=== PATIENT | male | born 1955 | race Caucasian/White ===

== ENCOUNTER 2020-11-18 06:05 | Emergency (ER) | payer MEDICARE ==
[2020-11-18 07:09] LABS: #Eosinphils 0.1 thou/uL (0.0-0.7); #Lymphocytes 0.7 thou/uL (1.20-3.40); #Monocytes 0.6 thou/uL (0.11-0.59); #Neutrophils 7.4 thou/uL (1.40-6.50); %Basophils 0.1 % (0.0-1.0); %Eosinophils 0.9 % (0.0-10.0); %Lymphocytes 7.9 % (21.0-51.0); %Monocytes 7.2 % (0.0-10.0); %Neutrophils 83.9 % (42.0-75.0); Mean Corpuscular HGB CONC 32.3 g/dL (32.0-36.0); Mean Corpuscular Hemoglobin 30.6 pg (27.0-31.0); Mean Corpuscular Volume 94.7 fL (78.0-98.0); Mean Platelet Volume 7.8 fL (7.4-10.4); Platelet Count 329 thou/uL (130-400); RBC Distribution Width 11.7 % (11.5-14.5); Red Blood Cell (RBC) Count 4.59 mill/uL (4.70-6.10); White Blood Cell (WBC) Count 8.8 thou/uL (4.8-10.8)
[2020-11-18 07:30] LABS: ALT (SGPT) 17 U/L (8-55); AST (SGOT) 21 U/L (5-34); Albumin 3.5 g/dL (3.4-4.8); Alkaline Phosphatase 79 U/L (40-110); Anion Gap 18 mmol/L (10-20); BUN (Urea Nitrogen) 18 mg/dL (8.4-25.7); Bilirubin, Total 0.7 mg/dL (0.2-1.2); Calc. Creatinine Clearance 0 mL/min (70-130); Calcium 8.8 mg/dL (7.8-10.44); Carbon Dioxide 22 mmol/L (23-31); Chloride 100 mmol/L (98-107); Globulin 3.7 g/dL (2.4-3.5); Glucose 121 mg/dL (80-115); Potassium 3.9 mmol/L (3.5-5.1); Protein, Total 7.2 g/dL (5.8-8.1); Sodium 136 mmol/L (136-145)
--- NOTE | 2020-11-18 07:51 | RAD ---
Chest one view HISTORY: Dyspnea. COMPARISON: 11/12/2020. FINDINGS: Cardiac silhouette and pulmonary vasculature are unremarkable. Mediastinum is midline. Subt le ill-defined patchy areas of groundglass parenchymal opacity project over the lateral aspect of the left lung, possibly the left lower lobe and the right lower lobe. No lobar consolidation or evidence of pneumothorax. IMPRESSION : Slight interval progression in density of still subtle bilateral infiltrates. Correlate for COVID pne umonitis.
[2020-11-18] MEDS ORDERED: Dexamethasone 10 MG/ML VIAL ONE (08:00)
== END 2020-11-18 09:12 | disposition home or self-care (01) ==
LOC: ERS 06:05
DX: U07.1 COVID-19 (principal); J12.82 Pneumonia due to coronavirus disease 2019; E78.00 Pure hypercholesterolemia, unspecified; E11.9 Type 2 diabetes mellitus without complications; Z79.899 Other long term (current) drug therapy
CPT/HCPCS: 36415; 71045; 80053; 83880; 84484; 85025; 93005; 96374; J1100

== ENCOUNTER 2024-01-27 07:07 | Day surgery (SDC) | payer OTHER ==
[2024-01-18 15:43] VITALS: BMI 29.4
[2024-01-27] MEDS ORDERED: LevoFLOXacin D5W 500 mg (100 mL) BAG ONE (07:59)
[2024-01-27] MEDS ORDERED: Midazolam HCl 2 mg/2 ml Vial ONE (08:00)
[2024-01-27] MEDS ORDERED: Iopamidol 0 ML ONE (09:42)
[2024-01-27] MEDS ORDERED: PROPOFOL 20 ML ONE (09:59)
[2024-01-27] MEDS ORDERED: fentaNYL PF 100 MCG/2 ML SYRINGE ONE (09:59)
[2024-01-27] MEDS ORDERED: Lidocaine 2% PF 5 ML VIAL ONE (10:00)
[2024-01-27] MEDS ORDERED: Dexmedetomidine 200 MCG/2 ML VIAL ONE (10:24)
[2024-01-27] MEDS ORDERED: Rocuronium Bromide 10 MG/ML (10ML VIAL) ONE (10:24)
[2024-01-27] MEDS ORDERED: ePHEDrine Sulfate 50 MG/10 ML VIAL ONE (10:29)
[2024-01-27] MEDS ORDERED: SUGAMMADEX SODIUM 200 MG/2 ML VIAL ONE (10:56)
[2024-01-27] MEDS ORDERED: Ondansetron PF 4 MG/2 ML Vial ONE (11:03)
[2024-01-27] MEDS ORDERED: Oxybutynin 5 MG TAB ONE (11:32)
[2024-01-27] MEDS ORDERED: Phenazopyridine HCl 100 MG TAB ONE (11:32)
== END 2024-01-27 13:27 | disposition home or self-care (01) ==
LOC: SDC 07:07
PROVIDERS: ATTEND Urology
PROC: 0TF68ZZ Fragmentation in Right Ureter, Via Natural or Artificial Opening Endoscopic (ICD-10-PCS; principal; 2024-01-27)
PROC: 0T768DZ Dilation of Right Ureter with Intraluminal Device, Via Natural or Artificial Opening Endoscopic (ICD-10-PCS; 2024-01-27)
DX: N20.1 Calculus of ureter (principal); N18.31 Chronic kidney disease, stage 3a; E11.22 Type 2 diabetes mellitus with diabetic chronic kidney disease; E78.5 Hyperlipidemia, unspecified; Z80.0 Family history of malignant neoplasm of digestive organs; Z88.8 Allergy status to other drugs, medicaments and biological substances; Z79.84 Long term (current) use of oral hypoglycemic drugs; Z79.899 Other long term (current) drug therapy
CPT/HCPCS: 82365; 88300; C1747; C1769; C2617; J1956; J2001; J2250; J2405; J2704; Q9967